=== PATIENT | male | born 1985 | race Caucasian/White ===

== ENCOUNTER 2019-06-21 11:13 | Emergency (ER) | payer OTHER ==
[2019-06-21 11:26] VITALS: BP 134/89; PULSE 70; TEMP 98; BMI 26.4
[2019-06-21] MEDS ORDERED: DIPHTH,PERTUSS(ACELL),TET 0.5 ML DISP.SYRIN IM ONE (11:37)
--- NOTE | 2019-06-21 11:42 | PDOC ---
History of Present Illness - General Chief Complaint: Laceration Stated Complaint: INJURY Time Seen by Provider: 06/21/19 11:32 - History of Present Illness Initial Comments: 06/21/19 11:41 33-year-old male without comorbidities presents for evaluation of a superficial laceration which occurred at his job today. He states he was hit in the face with a piece of flying glass. He is not current on tetanus. Past History - Past Medical History Allergies/Adverse Reactions: Allergies Allergy/AdvReac Type Severity Reaction Status Date / Time No Known Allergies Allergy Verified 06/21/19 11:21 COPD: No - Immunization History Immunization Up to Date: Yes - Psycho Social/Smoking Cessation Hx Smoking History: Never smoked Have you smoked in the past 12 months: No Information on smoking cessation initiated: No Hx Alcohol Use: No Drug/Substance Use Hx: No Review of Systems - Review of Systems Constitutional: Yes: See HPI *Physical Exam - Vital Signs Last Vital Signs Temp Pulse Resp BP Pulse Ox 98 F 70 18 134/89 96 06/21/19 11:22 06/21/19 11:22 06/21/19 11:22 06/21/19 11:22 06/21/19 11:22 - Physical Exam 06/21/19 11:41 There is a superficial excoriation on the right lateral aspect of the nose no indication of foreign body ED Treatment Course - Medications Given in the ED: ED Medications Discontinued Medications Generic Name Dose Route Start Last Admin Trade Name Freq PRN Reason Stop Dose Admin Diphtheria/Tetanus/Acell Pertussis 0.5 ml 06/21/19 11:37 06/21/19 11:39 Boostrix - IM 06/21/19 11:38 0.5 ml .ONCE ONE Administration Medical Decision Making - Medical Decision Making 06/21/19 11:41 Tetanus shot updated wound care with soap and water Discharge - Discharge Information Problems reviewed: Yes Clinical Impression/Diagnosis: Superficial abrasion Condition: Stable Disposition: HOME - Admission No - Follow up/Referral Referrals: Susan River MD [Staff Physician] - - Patient Discharge Instructions Additional Instructions: Please keep the area clean with soap and water. Your tetanus shot was updated today. Return to the emergency room for worsening symptoms. And without fail follow-up with your primary care physician in 1 to 2 days for further evaluation and treatment options. - Post Discharge Activity
== END 2019-06-21 11:46 | disposition home or self-care (01) ==
LOC: JERFT 11:13
DX: S00.81XA Abrasion of other part of head, initial encounter (principal); W25.XXXA Contact with sharp glass, initial encounter; Y93.89 Activity, other specified; Y92.89 Other specified places as the place of occurrence of the external cause; Y99.0 Civilian activity done for income or pay
CPT/HCPCS: 90715; 99282-25

== ENCOUNTER 2020-07-21 13:15 | Emergency (ER) | payer OTHER ==
[2020-07-21 13:22] VITALS: TEMP 98.5; BMI 27.1
[2020-07-21 13:56] VITALS: BP 158/97; PULSE 70
== END 2020-07-21 13:55 | disposition home or self-care (01) ==
LOC: FER 13:15
DX: H93.13 Tinnitus, bilateral (principal); Z00.00 Encounter for general adult medical examination without abnormal findings
CPT/HCPCS: 99282-25

== ENCOUNTER 2022-07-07 15:27 | Emergency (ER) | payer OTHER ==
[2022-07-07 15:41] VITALS: BP 144/96; PULSE 79; RESP 16; TEMP 98.7; BMI 26.4
== END 2022-07-07 16:21 | disposition home or self-care (01) ==
LOC: FER 15:27
DX: M54.6 Pain in thoracic spine (principal)
CPT/HCPCS: 71046-TC-FY; 99283-25